=== PATIENT | male | born 1955 | race Caucasian/White ===

== ENCOUNTER → 2022-06-01 | Outpatient (CLI) | payer BC | END | disposition home or self-care (01) | LOC: US 02:42 | PROVIDERS: ATTEND Internal Medicine | DX: K76.0 Fatty (change of) liver, not elsewhere classified (principal); I77.811 Abdominal aortic ectasia; R10.11 Right upper quadrant pain ==

== ENCOUNTER 2025-04-18 12:50 | Observation (INO) | payer MEDICARE ==
[2025-04-18] VITALS (22 sets, daily range): BP systolic 89–120; BP diastolic 43–71
[~2025-04-18] VITALS: Ht 180.3 cm; Wt 68.0 kg
[2025-04-18] MEDS ORDERED: SODIUM CHLORIDE 0.9% 1,000 ML IV SCH (13:15)
[2025-04-18] MEDS ORDERED: IOHEXOL 300 MG/ML 100 ML VIAL IV ONE (13:20)
[2025-04-18] MEDS ORDERED: ZESTRIL20 MG PO (13:25)
[2025-04-18] MEDS ORDERED: ZESTORETIC 20-1 EACH PO (13:25)
[2025-04-18] MEDS ORDERED: diphenhydrAMINE hydrochloride 50 MG/ML VIAL IV ONE (13:40)
[2025-04-18] MEDS ORDERED: Metoclopramide Hydrochloride 10 MG/2 ML VIAL IV ONE (13:40)
[2025-04-18 13:44] LABS: MEAN CELL VOLUME 94.0 fl (80.0-94.0); MEAN CORPUSCULAR HGB 30.0 pg (27.0-31.0); MEAN PLATELET VOLUME 9.2 fl (9.6-12.3); NUCLEATED RED BLOOD CELL 0.0 % (0.0-0.0); NUCLEATED RED BLOOD CELL 0.0 10*3/uL (0.0-0.0); PLATELET COUNT AUTOMATED 312 10*3/uL (130-400); RED CELL DISTRI WIDTH 14.6 % (0-14.5)
[2025-04-18 13:51] LABS: MANUAL DIFF REFLEX YES
[2025-04-18 14:03] LABS: BUN 58.0 mg/dl (9-23); SGPT/ALT 245.0 U/L (5-49)
[2025-04-18 14:06] LABS: PLATELET SUFFICIENCY NORMAL (NORMAL)
[2025-04-18 14:23] LABS: ACT PARTIAL THROMBO TIME 24.3 SECONDS (20.0-32.1)
[2025-04-18] MEDS ORDERED: SODIUM CHLORIDE 0.9% 500 ML IV ONE (15:32)
[2025-04-18 19:54] LABS: BILIRUBIN 1+ (Negative); BLOOD Negative (Negative); CLARITY Cloudy (Clear); COLOR Dark Yellow (Yellow); KETONE Trace (Negative); LEUKO ESTERASE Negative (Negative); NITRITE Negative (Negative); PH 5.5 (4.5-8.0); SPECIFIC GRAVITY >= 1.030 (1.001-1.030); UROBILINOGEN 1.0 E.U./dl (0.0-1.0)
[2025-04-18] MEDS ORDERED: HYDROmorphONE Hydrochloride 0.5 MG/0.5 ML SYRINGE IV ONE (20:00)
[2025-04-18] MEDS ORDERED: Ondansetron Hydrochloride 4 MG/2 ML VIAL IV ONE (20:00)
[2025-04-18 20:02] LABS: BACTERIA 2+; RBC 0-2 rbc/hpf (0-2)
[2025-04-18] MEDS ORDERED: BISACODYL 10 MG SUPP R PRN (23:00)
[2025-04-18] MEDS ORDERED: Ondansetron Hydrochloride 4 MG/2 ML VIAL IV PRN (23:00)
[2025-04-19 00:16] LABS: BASO # 0.1 10*3/uL (0.0-0.1); BASO % 0.6 % (0.0-1.0); EOS # 0.0 10*3/uL (0.0-0.4); EOS % 0.0 % (1.0-4.0); MEAN CELL VOLUME 92.5 fl (80.0-94.0); MEAN CORPUSCULAR HGB 30.2 pg (27.0-31.0); MEAN PLATELET VOLUME 9.1 fl (9.6-12.3); MONO # 1.2 10*3/uL (0.1-1.0); MONO % 13.3 % (3.0-9.0); NEUT # 5.9 10*3/uL (2.3-7.9); NEUT % 66.7 % (47.0-73.0); NUCLEATED RED BLOOD CELL 0.0 % (0.0-0.0); NUCLEATED RED BLOOD CELL 0.0 10*3/uL (0.0-0.0); PLATELET COUNT AUTOMATED 239 10*3/uL (130-400); RED CELL DISTRI WIDTH 15.5 % (0-14.5)
[2025-04-19 01:19] VITALS: BP 111/71
[2025-04-19 02:19] VITALS: BP 121/70
[2025-04-19 03:19] VITALS: BP 103/53
[2025-04-19 04:19] VITALS: BP 111/60
[2025-04-19 05:49] VITALS: BP 122/66
[2025-04-19 06:00] LABS: BASO # 0.1 10*3/uL (0.0-0.1); BASO % 0.7 % (0.0-1.0); EOS # 0.0 10*3/uL (0.0-0.4); EOS % 0.2 % (1.0-4.0); MEAN CELL VOLUME 92.8 fl (80.0-94.0); MEAN CORPUSCULAR HGB 30.4 pg (27.0-31.0); MEAN PLATELET VOLUME 9.6 fl (9.6-12.3); MONO # 1.1 10*3/uL (0.1-1.0); MONO % 11.9 % (3.0-9.0); NEUT # 6.2 10*3/uL (2.3-7.9); NEUT % 67.9 % (47.0-73.0); NUCLEATED RED BLOOD CELL 0.0 % (0.0-0.0); NUCLEATED RED BLOOD CELL 0.0 10*3/uL (0.0-0.0); PLATELET COUNT AUTOMATED 277 10*3/uL (130-400); RED CELL DISTRI WIDTH 15.7 % (0-14.5)
[2025-04-19] MEDS ORDERED: SODIUM CHLORIDE 0.9% 1,000 ML IV SCH (06:00)
[2025-04-19 06:19] LABS: BUN 59.0 mg/dl (9-23); FREE T4 1.55 ng/dl (0.89-1.76); LDL CHOLESTEROL 75.0 mg/dL (9-159); SGPT/ALT 210.0 U/L (5-49)
[2025-04-19 07:27] VITALS: BP 112/61
[2025-04-19 08:07] LABS: VITAMIN D, 25-HYDROXY 64.2 ng/mL (30-100)
[2025-04-19] MEDS ORDERED: hydroCHLOROthiazide 25 MG TAB PO SCH (10:00)
[2025-04-19] MEDS ORDERED: LISINOPRIL 20 MG TAB PO SCH ×2 (10:00→22:00)
== END 2025-04-19 12:07 | disposition short-term general hospital (02) ==
LOC: ED 12:50 → EDHOLD 22:30
PROVIDERS: Nurse Practitioner Family; ADMIT Internal Medicine; ATTEND Internal Medicine
DX: K86.89 Other specified diseases of pancreas (principal); D62 Acute posthemorrhagic anemia; K92.2 Gastrointestinal hemorrhage, unspecified; N17.9 Acute kidney failure, unspecified; I10 Essential (primary) hypertension; E87.20 Acidosis, unspecified; R74.01 Elevation of levels of liver transaminase levels; R73.9 Hyperglycemia, unspecified; Z79.899 Other long term (current) drug therapy